=== PATIENT | male | born 1960 | race Caucasian/White ===

== ENCOUNTER 2018-06-02 10:26 | Observation (INO) | payer OTHER ==
[~2018-06-02] VITALS: Ht 172.7 cm; Wt 75.0 kg
--- NOTE | ~2018-06-02 | OP ---
PATIENT NAME: SIMON QURESHI MEDICAL RECORD: [id number] :56 LOCATION:D.[id number] ADMISSION DATE:06/02/18 SURGEON: STEFAN JUNE MD DATE OF OPERATION: 06/03/2018 PREOPERATIVE DIAGNOSES: 1. Acute appendicitis with localized peritonitis. 2. Arthritis. 3. Coronary artery disease. 4. Tobacco dependence syndrome. 5. Alcohol abuse. POSTOPERATIVE DIAGNOSES: 1. Acute appendicitis with localized peritonitis. 2. Arthritis. 3. Coronary artery disease. 4. Tobacco dependence syndrome. 5. Alcohol abuse. PROCEDURE: Laparoscopic appendectomy. SURGEON: Stefan June MD REPORT OF PROCEDURE: The patient's abdomen was prepped and draped in sterile fashion. A cutdown was made on the superior aspect of the umbilicus. Vicryls #0 were placed on the fascia bilaterally and the fascia was incised with a #15 blade. I then bluntly entered the peritoneal cavity and placed a 12-mm Michael port. Upon entering the cavity, under the umbilicus, there was noted to be a very small umbilical hernia. This opening was incorporated into our fascial incision. A 12-mm Michael was inserted in the abdominal cavity and the abdomen was insufflated. Under direct visualization, a 5-mm trocar was placed in the left lower quadrant and another was placed in the suprapubic region. The appendix was visualized and noted to be acutely inflamed with no signs of gangrene, perforation, or abscess. The appendix was dissected from its lateral attachments. A window was made through the mesoappendix near the cecum. The appendix was transected at its base using a 45 blue load Endo-RENA stapler. The mesoappendix was then transected with a 45 white load Endo-RENA stapler. The appendix was placed into an Endo Catch bag. At this point, the area was irrigated out and care was taken to make sure there was no sign of any active bleeding. At this point, the ports and insufflation were then removed and the appendix was taken out through the umbilicus. The umbilical fascia was closed with interrupted #0 Vicryls times 3. The wounds were then irrigated out with normal saline, infused with 10 mL of 0.25% Marcaine with epinephrine. The skin incisions were all closed with subcutaneous 5-0 Monocryl and dressed appropriately. COMPLICATIONS: None. CONDITION: Stable. ANESTHESIA: General endotracheal and local. BLOOD LOSS: Minimal. TRANSINT:[id number] Voice Confirmation ID: [id number] DOCUMENT ID: [id number] OPERATIVE REPORT [id number] SIMON QURESHI CHRISTIAN MD at 0916 CC: [id number] DICTATION DATE: 06/03/18 1110 CONTENT ANALYST: 06/03/18 1258 DIS IN 06/03/18 [place] [id number] [place] [id number]
[2018-06-02 10:56] LABS: APPEARANCE CLEAR (CLEAR); BILIRUBIN NEGATIVE (NEGATIVE); COLOR DK YELLOW (YELLOW); GLUCOSE NEGATIVE (NEGATIVE); KETONE MODERATE mg/dL (NEGATIVE); NITRITE NEGATIVE (NEGATIVE); PROTEIN 1+ mg/dL (NEGATIVE); UROBILINOGEN NORMAL (NORMAL)
[2018-06-02 10:57] LABS: BACTERIA FEW /hpf (NONE SEEN); EPITHELIAL CELLS 0-5 /hpf (0-5); MUCUS <1+ /lpf (NONE SEEN); RED CELLS - URINE 0-5 /hpf (0-5); WHITE CELLS - URINE 0-5 /hpf (0-5)
[2018-06-02 11:00] VITALS: BP 100/70
[2018-06-02 11:00] LABS: BASOPHILS 0.1 % (0-2); EOSINOPHILS 0.2 % (0-7); HEMATOCRIT 45.1 % (42.0-54.0); HEMOGLOBIN 15.7 g/dL (13.5-17.5); IMMATURE GRANULOCYTES 0.3 % (0-5); LYMPHOCYTES 9.7 % (15-50); MCH 31.6 pg (26.0-34.0); MCHC 34.8 g/dL (31.0-37.0); MCV 90.7 fL (80.0-100.0); MEAN PLATELET VOLUME 10.2 fL (7.4-10.4); MONOCYTES 2.9 % (2-11); NEUTROPHILS 86.8 % (40-80); PLATELET COUNT 246 10x3/uL (130-400); RBC 4.97 10x6/uL (4.20-6.10); RDW 12.7 % (11.5-14.5); WBC 13.9 10x3/uL (4.8-10.8)
[2018-06-02 11:10] LABS: ALBUMIN 4.3 g/dL (3.4-5.0); ALKALINE PHOSPHATASE 62 U/L (46-116); ALT (SGPT) 30 U/L (10-68); BILIRUBIN - TOTAL 0.89 mg/dL (0.2-1.3); CALC OSMOLALITY 278 mosm/kg (275-300); CALCIUM 9.4 mg/dL (8.5-10.1); CARBON DIOXIDE 30.1 mmol/L (21.0-32.0); CHLORIDE - SERUM 100 mmol/L (98-107); CREATININE - SERUM 1.1 mg/dL (0.6-1.3); GLUCOSE 110 mg/dL (74-106); PROTEIN - SERUM 8.4 g/dL (6.4-8.2); SODIUM 138 mmol/L (136-145); UREA NITROGEN 17 mg/dL (7-18); eGFR NON AFRICAN AMERICAN 73 mL/min (90-120)
[2018-06-02 11:13] LABS: AMYLASE - SERUM 45 U/L (25-115); LIPASE 94 U/L (73-393)
[2018-06-02 11:15] LABS: TROPONIN-I < 0.017 ng/mL (0.000-0.060)
[2018-06-02 12:00] VITALS: BP 136/63
[2018-06-02 13:00] VITALS: BP 142/60
[2018-06-02 14:30] VITALS: BP 137/65
[2018-06-02 17:44] VITALS: BP 111/56; BMI 25.1
[2018-06-02 20:00] VITALS: BP 88/46
[2018-06-03] VITALS (8 sets, daily range): BP systolic 105–125; BP diastolic 49–71; Ht 172.7 cm; Wt 75.0 kg
[2018-06-03 06:08] LABS: BASOPHILS 0.2 % (0-2); EOSINOPHILS 0.9 % (0-7); IMMATURE GRANULOCYTES 0.2 % (0-5); LYMPHOCYTES 22.3 % (15-50); MCH 30.6 pg (26.0-34.0); MCHC 33.6 g/dL (31.0-37.0); MCV 91.1 fL (80.0-100.0); MEAN PLATELET VOLUME 10.8 fL (7.4-10.4); MONOCYTES 8.3 % (2-11); NEUTROPHILS 68.1 % (40-80); RDW 12.8 % (11.5-14.5)
[2018-06-03 06:15] LABS: WBC 9.6 10x3/uL (4.8-10.8)
[2018-06-03 06:16] LABS: HEMOGLOBIN 12.1 g/dL (13.5-17.5); PLATELET COUNT 192 10x3/uL (130-400); RBC 3.95 10x6/uL (4.20-6.10)
[2018-06-03 06:21] LABS: CALC OSMOLALITY 276 mosm/kg (275-300); CALCIUM 8.1 mg/dL (8.5-10.1); CARBON DIOXIDE 26.4 mmol/L (21.0-32.0); CHLORIDE - SERUM 104 mmol/L (98-107); CREATININE - SERUM 0.9 mg/dL (0.6-1.3); GLUCOSE 87 mg/dL (74-106); SODIUM 139 mmol/L (136-145); UREA NITROGEN 13 mg/dL (7-18); eGFR NON AFRICAN AMERICAN > 90 mL/min (90-120)
[2018-06-03 06:41] LABS: INR 1.18 (0.85-1.17); PROTIME 14.6 SECONDS (11.6-15.0)
[2018-06-03] MEDS ORDERED: NORCO 10-325 TA1 TAB PO (11:12)
== END 2018-06-03 16:33 | disposition home or self-care (01) ==
LOC: D.ER 10:26 → OBSVTIME 16:20 → D.MS 16:20
PROVIDERS: Family Medicine
DX: K35.30 Acute appendicitis with localized peritonitis, without perforation or gangrene (principal); M19.90 Unspecified osteoarthritis, unspecified site; I25.10 Atherosclerotic heart disease of native coronary artery without angina pectoris; Z95.5 Presence of coronary angioplasty implant and graft; F17.200 Nicotine dependence, unspecified, uncomplicated; F10.10 Alcohol abuse, uncomplicated

== ENCOUNTER 2021-01-16 10:45 | Inpatient (IN) | payer OTHER ==
[~2021-01-16] VITALS: Ht 172.7 cm; Wt 74.8 kg
[~2021-01-16 10:45] MED LIST: NORCO 10-325 TA1 TAB PO
[2021-01-16 11:17] LABS: HEMATOCRIT 36.6 % (42.0-54.0); HEMOGLOBIN 12.1 g/dL (13.5-17.5); MCH 29.5 pg (26.0-34.0); MCHC 33.1 g/dL (31.0-37.0); MCV 89.2 fL (80.0-100.0); MEAN PLATELET VOLUME 7.5 fL (7.4-10.4); PLATELET COUNT 698 10x3/uL (130-400); RDW 14.3 % (11.5-14.5); WBC 23.4 10x3/uL (4.8-10.8)
[2021-01-16 11:22] LABS: CALC OSMOLALITY 268 mosm/kg (275-300); CALCIUM 8.5 mg/dL (8.5-10.1); CARBON DIOXIDE 26.5 mmol/L (21.0-32.0); CHLORIDE - SERUM 96 mmol/L (98-107); CREATININE - SERUM 0.9 mg/dL (0.6-1.3); GLUCOSE 119 mg/dL (74-106); POTASSIUM - SERUM 4.1 mmol/L (3.5-5.1); SODIUM 133 mmol/L (136-145); UREA NITROGEN 19 mg/dL (7-18); eGFR NON AFRICAN AMERICAN > 90 mL/min (90-120)
[2021-01-16 11:32] LABS: ALBUMIN 2.7 g/dL (3.4-5.0); ALKALINE PHOSPHATASE 179 U/L (30-120); ALT (SGPT) 128 U/L (10-68); AMYLASE - SERUM 46 U/L (25-115); BILIRUBIN - TOTAL 0.59 mg/dL (0.2-1.3); LIPASE 98 U/L (73-393); PROTEIN - SERUM 7.8 g/dL (6.4-8.2)
[2021-01-16 11:34] LABS: BASOPHILS 2 % (0-2); LYMPHOCYTES 52 % (15-50); MONOCYTES 2 % (2-11); NEUTROPHILS 41 % (40-80); PLATELET ESTIMATE INCREASED; TROPONIN-I < 0.017 ng/mL (0.000-0.060)
[2021-01-16 15:49] VITALS: BP 123/68
[2021-01-16 20:00] VITALS: BP 115/63
[2021-01-16 22:18] VITALS: BP 115/63; BMI 25.1
[2021-01-16] MEDS ORDERED: MEDROL DOSE PACK4 MG (22:30)
[2021-01-16] MEDS ORDERED: MIRALAX17 GM PO (22:31)
[2021-01-16] MEDS ORDERED: COLACE100 MG PO (22:31)
[2021-01-16] MEDS ORDERED: CIPRO500 MG PO (22:32)
[2021-01-17 06:33] VITALS: BP 97/53
[2021-01-17 06:41] LABS: BASOPHILS 1.3 % (0-2); EOSINOPHILS 0 % (0-7); HEMATOCRIT 31.5 % (42.0-54.0); HEMOGLOBIN 10.3 g/dL (13.5-17.5); MCH 29.6 pg (26.0-34.0); MCHC 32.7 g/dL (31.0-37.0); MCV 90.5 fL (80.0-100.0); MEAN PLATELET VOLUME 10.1 fL (7.4-10.4); RBC 3.48 10x6/uL (4.20-6.10); RDW 14.4 % (11.5-14.5)
[2021-01-17 06:43] LABS: PLATELET COUNT 555 10x3/uL (130-400)
[2021-01-17 06:46] LABS: ALKALINE PHOSPHATASE 127 U/L (30-120); BILIRUBIN - TOTAL 0.48 mg/dL (0.2-1.3); CALC OSMOLALITY 273 mosm/kg (275-300); CHLORIDE - SERUM 104 mmol/L (98-107); CREATININE - SERUM 0.9 mg/dL (0.6-1.3); GLUCOSE 98 mg/dL (74-106); PROTEIN - SERUM 6.2 g/dL (6.4-8.2); SODIUM 136 mmol/L (136-145); UREA NITROGEN 17 mg/dL (7-18); eGFR NON AFRICAN AMERICAN > 90 mL/min (90-120)
[2021-01-17 06:52] LABS: ALT (SGPT) 83 U/L (10-68); CALCIUM 7.6 mg/dL (8.5-10.1)
--- NOTE | 2021-01-17 06:52 | NUR ---
PT HARD OF HEARING, REQUESTING BE CALLED AT [phone] IS HERE
--- NOTE | 2021-01-17 07:30 | NUR ---
PT REQUESTED GLASSES PICKED UP FROM FLOOR. THIS WAS DONE. PT AWAKE, ALERT, AND ORIENTED LAYING IN BED WATCHING TV. NO FURTHER NEEDS. STATES PAIN LEVEL IS A 5 OUT OF 10. CL IN REACH. PHONES IN REACH. [facility]
[2021-01-17 07:44] LABS: ALBUMIN 1.7 g/dL (3.4-5.0)
[2021-01-17 08:37] VITALS: BP 107/58
--- NOTE | 2021-01-17 10:30 | NUR ---
SPOKE WITH . RECEIVED SECURITY CODE TO GIVE AN UPDATE. CL IN REACH. NO FURTHER NEEDS AT THIS TIME. TOLD PT TO CALL SINCE SHE HAD TRIED CALLING HIM. MIREYA
[2021-01-17 12:01] VITALS: BP 134/64
[2021-01-17 18:10] VITALS: BP 148/69
[2021-01-18 04:00] VITALS: BP 123/58
[2021-01-18 04:47] LABS: BILIRUBIN NEGATIVE (NEGATIVE); KETONE 1+ mg/dL (< 1+); NITRITE NEGATIVE (NEGATIVE); UROBILINOGEN NORMAL mg/dL (< 2); WHITE CELLS - URINE 1 HPF (0-1)
[2021-01-18 07:17] LABS: HEMATOCRIT 28.9 % (42.0-54.0); HEMOGLOBIN 9.7 g/dL (13.5-17.5); MCH 30.2 pg (26.0-34.0); MCHC 33.5 g/dL (31.0-37.0); MCV 90.1 fL (80.0-100.0); MEAN PLATELET VOLUME 8.2 fL (7.4-10.4); PLATELET COUNT 448 10x3/uL (130-400); RBC 3.21 10x6/uL (4.20-6.10); RDW 14.2 % (11.5-14.5); WBC 16.8 10x3/uL (4.8-10.8)
[2021-01-18 07:19] LABS: ALBUMIN 1.6 g/dL (3.4-5.0); ALKALINE PHOSPHATASE 116 U/L (30-120); ALT (SGPT) 76 U/L (10-68); BILIRUBIN - TOTAL 0.43 mg/dL (0.2-1.3); CALC OSMOLALITY 268 mosm/kg (275-300); CALCIUM 7.3 mg/dL (8.5-10.1); CARBON DIOXIDE 24.7 mmol/L (21.0-32.0); CHLORIDE - SERUM 104 mmol/L (98-107); CREATININE - SERUM 0.7 mg/dL (0.6-1.3); GLUCOSE 74 mg/dL (74-106); PHOSPHOROUS 2.4 mg/dL (2.5-4.9); POTASSIUM - SERUM 3.8 mmol/L (3.5-5.1); PROTEIN - SERUM 5.9 g/dL (6.4-8.2); SODIUM 135 mmol/L (136-145); eGFR NON AFRICAN AMERICAN > 90 mL/min (90-120)
[2021-01-18 07:20] LABS: UREA NITROGEN 12 mg/dL (7-18)
--- NOTE | 2021-01-18 07:25 | NUR ---
RESTING,WITHOUT DISTRESS.CALL LIGHT IN REACH
[2021-01-18 09:09] VITALS: BP 127/64
[2021-01-18 13:30] VITALS: BP 116/71
--- NOTE | 2021-01-18 14:23 | NUR ---
PATIENT C/O CONGESTION AND UNABLE TO BREATHE THROUGH NOSE. PATIENT HAS REQUESTED NOSE SPRAY, WILL CONTACT DOCTOR, CONTINUE WITH PLAN OF CARE
[2021-01-18 14:31] LABS: EOSINOPHILS 2 % (0-7); HYPOCHROMASIA OCC; LYMPHOCYTES 18 % (15-50); MONOCYTES 23 % (2-11); NEUTROPHILS 51 % (40-80); PLATELET ESTIMATE INCREASED; ROULEAUX OCC
[2021-01-18 17:46] VITALS: BP 135/63
--- NOTE | 2021-01-18 19:00 | NUR ---
BEDSIDE REPORT RECEIVED AND CARE OF PT ASSUMED. PT LYING IN LOW NAIDU'S POSITION WATCHING TV. IV TO RIGHT AC PATENT WITH NS INFUSING AT 125 ML/HR.
[2021-01-18 20:00] VITALS: BP 103/61
--- NOTE | 2021-01-18 20:30 | NUR ---
GAVE 2 MG BOLOS OF MORPHINE VIA CAREER DEVELOPMENT COORDINATOR PUMP, PER REQUEST FOR BREAKTHROUGH PAIN. WILL CONTINUE TO MONITOR FOR NEEDS.
--- NOTE | 2021-01-18 21:00 | NUR ---
HS MEDICATIONS GIVEN TO INCLUDE ATIVAN 1 MG IVP PER PT REQUEST FOR SLEEP AND ANXIETY.
[2021-01-19] VITALS: BP 124/63
[2021-01-19 04:00] VITALS: BP 123/60
[2021-01-19 09:07] VITALS: BP 136/64
[2021-01-19 12:42] VITALS: BP 128/65
[2021-01-19 14:36] VITALS: Ht 172.7 cm; Wt 74.8 kg
--- NOTE | 2021-01-19 16:37 | NUR ---
I have reviewed this patient and I concur with the Shift Assessment completed by the Licensed Practical Nurse today this shift.
[2021-01-19 17:08] VITALS: BP 139/72
--- NOTE | 2021-01-19 17:48 | MORECARE ---
CASE MANAGEMENT DISCHARGE SUMMARY PATIENT: SIMON QURESHI UNIT: [id number] ADM DATE: 01/16/21 AGE: 60 : 56 SEX: M ROOM/BED: D.2226 AUTHOR: FLORES,DOC PHYSICIAN: REFERRING PHYSICIAN: GAYLA JUNE MD DATE OF SERVICE: 01/19/21 Case Management Discharge Planning Summary COMMENTS ENTERED DATE: 01/19/21 17:42 CT COMMENT TYPE: Discharge Planning REVIEWER: Antonio Calderon CM met with patient to complete DC plan and to evaluate needs. Patient lives independently with his spouse, Vilma Qureshi, . Patient stated that his home is safe and has electricity and running water. Patient stated that the home has multiple steps to enter and he is able to manage the steps without difficulty. Patient stated that he has no problems paying for medications and he fills his medications at [facility]. Patient stated that his primary care physicians are with the [place]. At discharge, the patient plans to return home and feels this is a safe discharge. CM discussed availability of home health, rehab services, and medical equipment. Patient declined HHS, SNF, IPR, and DME. Patient voiced no other needs at this time and is satisfied with DC plan. Transportation provider at discharge will be with his Vilma. CM will continue to follow and will assist as needed with dc plans/needs DCP REVIEW SUMMARY ANTICIPATED D/C DATE: EXPECTED LOS : CASE STATUS: DCP Initiated INITIAL REVIEW: 01/16/2021 INITIAL REVIEWER: Antonio Calderon FINAL DISCHARGE DISPOSITION: : FINAL REVIEWER: FINAL REVIEW DATE: DCP Focus Questions & Answers DCP Evaluation QUESTION: ANSWER Patient gives permission to discuss discharge plans with: (name, relationship and number) : spouse, Vilma Qureshi, Patient's ability to cope with chronic illness : d. No chronic illness Patient's current cognitive status: : *Oriented to person, place, situation, time and present Family / Caregiver's ability to cope with chronic illness: : a. Adequate (ability to meet patient's medical needs, ensures patient attends medical appts.) Patient and/or caregiver agree upon recommended discharge plan? : Yes Physical Status: : Independent with ADL's Family / Caregiver's ability to cope with chronic illness: : a. Adequate (ability to meet patient's medical needs, ensures patient attends medical appts.) Functional screen assessment: : Basic needs can adequately be met by self Does the patient have the ability to pay for or attain post discharge needs / services? : Yes Living Arrangements: : Home with Spouse/Significant Other Is there a likelihood that the patient will require additional services to return to the preadmission environment? : No Equipment needed for post hospitalization: : None Baseline cognitive status: : *Oriented to person, place, situation, time and present Patient with capacity for self-care or can be cared for in same environment as prior to hospitalization? : Yes Physical environment modification needed / anticipated for discharge: : No Medication Management: : Patient states can afford medications Medication Management: : Patient states can read and understand medication labels Pharmacy name(s): : [facility] Does Patient have transportation to get home and to follow-up medical appointments when discharged from the hospital? : Yes Would patient like to participate in any Care Coordination programs (if applicable): : Not applicable Does the patient have electricity at home? : Yes Does the patient have running water in their house? : Yes Equipment in use: : None Mental health screen: : No mental health history DCP Re-evaluation QUESTION: ANSWER Would patient like to participate in any Care Coordination programs (if applicable): : Not applicable PATIENT: SIMON QURESHI ENCOUNTER: [id number] MEDICAL RECORD#: [id number] ADMISSION DATE: 01/16/2021 DISCHARGE DATE: ATTENDING MD: GAYLA SHRESTHA : AGE: 60 MARITAL STATUS: M DC PLAN ID: [id number] FACILITY: [facility] PRINTED ON: 01/19/21 17:48 CT All edits/amendments must be made on the electronic document DICTATION DATE: 01/19/211747 HOTEL GENERAL MANAGER: AMY 01/19/211747 RPT#: [id number] DC DATE: STATUS: ADM IN [facility] [address] [place] [address] END OF REPORT
[2021-01-19 20:00] VITALS: BP 128/69
--- NOTE | 2021-01-19 20:20 | NUR ---
KENNETH ROCA RN RESTARTED IV IN LEFT FA, FIRST ATTEMPT, BANANA BAG RESTARTED PER MD ORDERS, SEE EMAR
--- NOTE | 2021-01-19 21:26 | NUR ---
PT REQUESTED ATIVAN TO HELP WITH SLEEP, ADM PER MD ORDERS, SEE EMAR
[2021-01-20] VITALS (7 sets, daily range): BP systolic 102–143; BP diastolic 50–88
[2021-01-20 06:23] LABS: HEMATOCRIT 28.7 % (42.0-54.0); HEMOGLOBIN 9.6 g/dL (13.5-17.5); MCH 30.2 pg (26.0-34.0); MCHC 33.4 g/dL (31.0-37.0); MCV 90.3 fL (80.0-100.0); MEAN PLATELET VOLUME 7.8 fL (7.4-10.4); PLATELET COUNT 367 10x3/uL (130-400); RBC 3.18 10x6/uL (4.20-6.10)
[2021-01-20 06:27] LABS: WBC 12.5 10x3/uL (4.8-10.8)
[2021-01-20 06:42] LABS: CALCIUM 7.1 mg/dL (8.5-10.1); CARBON DIOXIDE 24.2 mmol/L (21.0-32.0); CHLORIDE - SERUM 106 mmol/L (98-107); CREATININE - SERUM 0.7 mg/dL (0.6-1.3); GLUCOSE 99 mg/dL (74-106); POTASSIUM - SERUM 3.5 mmol/L (3.5-5.1); SODIUM 138 mmol/L (136-145); eGFR NON AFRICAN AMERICAN > 90 mL/min (90-120)
[2021-01-20 07:02] LABS: CALC OSMOLALITY 272 mosm/kg (275-300)
[2021-01-20 07:03] LABS: UREA NITROGEN 5 mg/dL (7-18)
[2021-01-20 13:01] LABS: LYMPHOCYTES 19 % (15-50); MONOCYTES 6 % (2-11); NEUTROPHILS 69 % (40-80)
[2021-01-20 13:02] LABS: ANISOCYTOSIS OCC; HYPOCHROMASIA OCC; PLATELET ESTIMATE NORMAL; ROULEAUX OCC
--- NOTE | 2021-01-20 13:16 | MORECARE ---
CASE MANAGEMENT DISCHARGE SUMMARY PATIENT: SIMON QURESHI UNIT: [id number] ADM DATE: 01/16/21 AGE: 60 : 56 SEX: M ROOM/BED: D.2226 AUTHOR: FLORES,DOC PHYSICIAN: REFERRING PHYSICIAN: GAYLA JUNE MD DATE OF SERVICE: 01/20/21 Case Management Discharge Planning Summary COMMENTS ENTERED DATE: 01/19/21 17:42 CT COMMENT TYPE: Discharge Planning REVIEWER: Antonio Calderon CM met with patient to complete DC plan and to evaluate needs. Patient lives independently with his spouse, Vilma Qureshi, . Patient stated that his home is safe and has electricity and running water. Patient stated that the home has multiple steps to enter and he is able to manage the steps without difficulty. Patient stated that he has no problems paying for medications and he fills his medications at [facility]. Patient stated that his primary care physicians are with the [place]. At discharge, the patient plans to return home and feels this is a safe discharge. CM discussed availability of home health, rehab services, and medical equipment. Patient declined HHS, SNF, IPR, and DME. Patient voiced no other needs at this time and is satisfied with DC plan. Transportation provider at discharge will be with his Vilma. CM will continue to follow and will assist as needed with dc plans/needs DCP REVIEW SUMMARY ANTICIPATED D/C DATE: EXPECTED LOS : CASE STATUS: DCP Initiated INITIAL REVIEW: 01/16/2021 INITIAL REVIEWER: Antonio Calderon FINAL DISCHARGE DISPOSITION: : FINAL REVIEWER: FINAL REVIEW DATE: DCP Focus Questions & Answers DCP Evaluation QUESTION: ANSWER Patient and/or caregiver agree upon recommended discharge plan? : Yes Family / Caregiver's ability to cope with chronic illness: : a. Adequate (ability to meet patient's medical needs, ensures patient attends medical appts.) Patient's current cognitive status: : *Oriented to person, place, situation, time and present Patient's ability to cope with chronic illness : d. No chronic illness Patient gives permission to discuss discharge plans with: (name, relationship and number) : spouse, Vilma Qureshi, Does the patient have the ability to pay for or attain post discharge needs / services? : Yes Functional screen assessment: : Basic needs can adequately be met by self Family / Caregiver's ability to cope with chronic illness: : a. Adequate (ability to meet patient's medical needs, ensures patient attends medical appts.) Physical Status: : Independent with ADL's Equipment needed for post hospitalization: : None Is there a likelihood that the patient will require additional services to return to the preadmission environment? : No Living Arrangements: : Home with Spouse/Significant Other Patient with capacity for self-care or can be cared for in same environment as prior to hospitalization? : Yes Baseline cognitive status: : *Oriented to person, place, situation, time and present Physical environment modification needed / anticipated for discharge: : No Medication Management: : Patient states can read and understand medication labels Medication Management: : Patient states can afford medications Pharmacy name(s): : [facility] Does Patient have transportation to get home and to follow-up medical appointments when discharged from the hospital? : Yes Would patient like to participate in any Care Coordination programs (if applicable): : Not applicable Does the patient have electricity at home? : Yes Does the patient have running water in their house? : Yes Equipment in use: : None Mental health screen: : No mental health history DCP Re-evaluation QUESTION: ANSWER Would patient like to participate in any Care Coordination programs (if applicable): : Not applicable PATIENT: SIMON QURESHI ENCOUNTER: [id number] MEDICAL RECORD#: [id number] ADMISSION DATE: 01/16/2021 DISCHARGE DATE: ATTENDING MD: GAYLA HSRESTHA : AGE: 60 MARITAL STATUS: M DC PLAN ID: [id number] FACILITY: [facility] PRINTED ON: 01/20/21 13:16 CT All edits/amendments must be made on the electronic document DICTATION DATE: 01/20/21 1316 REPAIR SUPERVISOR: DM 01/20/21 1316 RPT#: [id number] DC DATE: STATUS: ADM IN [facility] [address] [place] [address] END OF REPORT
--- NOTE | 2021-01-20 16:42 | NUR ---
PT REQUESTED FOR IV BE REMOVED, PT IS NOT ON ANY IV MEDS EXCEPT ZOFRAN BUT STATES HE HAS NOT HAD ANY NAUSEA WHILE HERE. IV REMOVED, TIP INTACT, PT DID ASK ABOUT SOMETHING TO HELP HIM SLEEP AND SAID THE ATIVAN HELPED LAST NIGHT, THAT ORDER HAS BEEN DC'D
[2021-01-21 04:00] VITALS: BP 111/65
[2021-01-21 08:41] VITALS: BP 119/68
[2021-01-21] MEDS ORDERED: FLAGYL500 MG PO (08:55)
[2021-01-21] MEDS ORDERED: LEVAQUIN750 MG PO (08:55)
[2021-01-21] MEDS ORDERED: HYDROCODON-ACE1 EA10 PO (08:55)
--- NOTE | 2021-01-21 11:04 | NUR ---
DISCHARGE INSTRUCTIONS GIVEN. PT VERBALIZED UNDERSTANDING. TOLD HIM HE HAS ABX AT [facility] [address]. REFUSED WHEELCHAIR DOWN. ESCORTED TO FRONT ENTRANCE.
--- NOTE | 2021-01-22 13:18 | MORECARE ---
CASE MANAGEMENT DISCHARGE SUMMARY PATIENT: SIMON QURESHI UNIT: [id number] ADM DATE: 01/16/21 AGE: 60 : 56 SEX: M ROOM/BED: D.2226 AUTHOR: FLORES,DOC PHYSICIAN: REFERRING PHYSICIAN: GAYLA JUNE MD DATE OF SERVICE: 01/22/21 Case Management Discharge Planning Summary COMMENTS ENTERED DATE: 01/19/21 17:42 CT COMMENT TYPE: Discharge Planning REVIEWER: Antonio Calderon CM met with patient to complete DC plan and to evaluate needs. Patient lives independently with his spouse, Vilma Qureshi, . Patient stated that his home is safe and has electricity and running water. Patient stated that the home has multiple steps to enter and he is able to manage the steps without difficulty. Patient stated that he has no problems paying for medications and he fills his medications at [facility]. Patient stated that his primary care physicians are with the [place]. At discharge, the patient plans to return home and feels this is a safe discharge. CM discussed availability of home health, rehab services, and medical equipment. Patient declined HHS, SNF, IPR, and DME. Patient voiced no other needs at this time and is satisfied with DC plan. Transportation provider at discharge will be with his Vilma. CM will continue to follow and will assist as needed with dc plans/needs DCP REVIEW SUMMARY ANTICIPATED D/C DATE: EXPECTED LOS : CASE STATUS: DCP Initiated INITIAL REVIEW: 01/16/2021 INITIAL REVIEWER: Antonio Calderon FINAL DISCHARGE DISPOSITION: : FINAL REVIEWER: FINAL REVIEW DATE: DCP Focus Questions & Answers DCP Evaluation QUESTION: ANSWER Patient and/or caregiver agree upon recommended discharge plan? : Yes Family / Caregiver's ability to cope with chronic illness: : a. Adequate (ability to meet patient's medical needs, ensures patient attends medical appts.) Patient's current cognitive status: : *Oriented to person, place, situation, time and present Patient's ability to cope with chronic illness : d. No chronic illness Patient gives permission to discuss discharge plans with: (name, relationship and number) : spouse, Vilma Qureshi, Does the patient have the ability to pay for or attain post discharge needs / services? : Yes Functional screen assessment: : Basic needs can adequately be met by self Family / Caregiver's ability to cope with chronic illness: : a. Adequate (ability to meet patient's medical needs, ensures patient attends medical appts.) Physical Status: : Independent with ADL's Equipment needed for post hospitalization: : None Is there a likelihood that the patient will require additional services to return to the preadmission environment? : No Living Arrangements: : Home with Spouse/Significant Other Patient with capacity for self-care or can be cared for in same environment as prior to hospitalization? : Yes Baseline cognitive status: : *Oriented to person, place, situation, time and present Physical environment modification needed / anticipated for discharge: : No Medication Management: : Patient states can read and understand medication labels Medication Management: : Patient states can afford medications Pharmacy name(s): : [facility] Does Patient have transportation to get home and to follow-up medical appointments when discharged from the hospital? : Yes Would patient like to participate in any Care Coordination programs (if applicable): : Not applicable Does the patient have electricity at home? : Yes Does the patient have running water in their house? : Yes Equipment in use: : None Mental health screen: : No mental health history DCP Re-evaluation QUESTION: ANSWER Would patient like to participate in any Care Coordination programs (if applicable): : Not applicable PATIENT: SIMON QURESHI ENCOUNTER: [id number] MEDICAL RECORD#: [id number] ADMISSION DATE: 01/16/2021 DISCHARGE DATE: 01/21/2021 ATTENDING MD: GAYLA SHRESTHA : AGE: 60 MARITAL STATUS: M DC PLAN ID: [id number] FACILITY: [facility] PRINTED ON: 01/22/21 13:18 CT All edits/amendments must be made on the electronic document DICTATION DATE: 01/22/21 1318 CRAYON SORTING MACHINE FEEDER: DM 01/22/21 1318 RPT#: [id number] DC DATE:01/21/21 STATUS: DIS IN [facility] [address] [place] [address] END OF REPORT
--- NOTE | 2021-01-25 14:49 | DS ---
PATIENT:SIMON QURESHI :56 MEDICAL RECORD: [id number] DISCHARGE SUMMARY ADMISSION DATE: 01/16/21 DISCHARGE DATE: 01/21/21 DATE OF ADMISSION: 01/17/2021 DATE OF DISCHARGE: 01/21/2021 ADMISSION DIAGNOSES: 1. Acute diverticulitis with perforation. 2. History of ETOH use. 3. Coronary artery disease. 4. Tobacco dependence syndrome. DISCHARGE DIAGNOSES: 1. Acute diverticulitis with perforation. 2. History of ETOH use. 3. Coronary artery disease. 4. Tobacco dependence syndrome. PROCEDURES: None. CONSULTATIONS: None. REPORT OF HOSPITALIZATION: The patient was admitted to the floor from the ER with CT findings of perforated diverticulitis with some free air in the abdomen. The patient was treated conservatively with n.p.o., IV fluids, and IV antibiotics. The patient was also given banana bag and p.r.n. benzos for DT prophylaxis. The patient did quite well over the next couple of days and his pain essentially resolved. He was started on a clear liquid diet. At this point, his white blood cell count had almost normalized as he was tolerating a diet. He was having bowel function. He had some pain around his anal region with defecation, but his abdominal pain had resolved and eventually was advanced up to a regular diet, which he also tolerated and at that point, he was felt to be stable for discharge home. His vital signs were stable and he had been afebrile through his hospitalization. DISCHARGE INSTRUCTIONS: Return to clinic or call with any questions or concerns, fevers, chills, nausea, vomiting or worsening abdominal pain. ACTIVITY: As tolerated. DIET: Regular. Follow up in clinic with me in 1 to 2 weeks. TRANSINT:[id number] Voice Confirmation ID: [id number] DOCUMENT ID: [id number] DISCHARGE SUMMARY REPORT [id number] KIERAGAYLA RODRIGUEZ MD at 1449 CC: [id number] DICTATION DATE: 01/21/21 1057 SENIOR C SOFTWARE ENGINEER: 01/21/21 1139 DIS IN 01/21/21 [place] [address]
== END 2021-01-21 11:05 | disposition home or self-care (01) | DRG 392 ==
LOC: D.ER 10:45 → D.EDHOLD 14:25 → D.MS 14:25
PROVIDERS: Family Medicine; ADMIT Surgery; ATTEND Surgery
DX: K57.80 Diverticulitis of intestine, part unspecified, with perforation and abscess without bleeding (principal); I25.10 Atherosclerotic heart disease of native coronary artery without angina pectoris; F10.10 Alcohol abuse, uncomplicated; Z95.5 Presence of coronary angioplasty implant and graft; R42 Dizziness and giddiness; M19.90 Unspecified osteoarthritis, unspecified site; F32.9 Major depressive disorder, single episode, unspecified; F41.9 Anxiety disorder, unspecified; F17.200 Nicotine dependence, unspecified, uncomplicated